=== PATIENT | male | born 1940 | race Caucasian/White ===

== ENCOUNTER 2017-10-24 11:01 | Outpatient (CLI) | payer MEDICARE ==
--- NOTE | 2017-10-24 12:45 | RAD ---
RADIOGRAPH CERVICAL SPINE 5 VIEWS: HISTORY: 77-year-old male with cervical radiculopathy and cervical myelopathy. Cervicalgia. Technique: AP and open mouth. Lateral views in neutral, flexion, and extension. COMPARISON: No prior plain radiographs or CT's of the cervical spine. There is an MRI of 06-24-08. FINDINGS: There are bilateral posterior element screws with vertical interlocking rods, at C3, C4, and C5, new since the 2007 MRI. There are also laminectomy defects throughout these same levels. There is severe osteopenia. There is moderate to severe disc space narrowing at C3-4, moderate disc space narrowing a t C4-5, and mild disc space narrowing at C5-6. There is endplate irregularity, moderate disc space na rrowing, and large anterior endplate osteophytes protruding into the prevertebral space at C6-7 and C 7-T1. No major subluxation. No prevertebral soft tissue swelling. The large osteophytes at C6-7 encro ach upon the hypopharynx, and could potentially result in dysphagia. No instability is demonstrated b etween flexion and extension. There is kyphosis of the upper thoracic spine. IMPRESSION: 1) Status post laminectomies and posterior element fusion hardware, at C3-4-5. 2) Cervical spondylosis, including severe degenerative disc disease at C6-7 and C7-T1. 3) Upper thoracic kyphosis. 4) Severe osteoporosis. 5) No instability. FANTASMA POS: PHILIP
== END 2017-10-24 11:02 | disposition home or self-care (01) ==
LOC: TBSIIMAG 11:01
PROVIDERS: ATTEND Neurological Surgery
DX: M47.12 Other spondylosis with myelopathy, cervical region (principal); M40.204 Unspecified kyphosis, thoracic region; M81.0 Age-related osteoporosis without current pathological fracture
CPT/HCPCS: 72050

== ENCOUNTER 2019-08-19 15:21 | Outpatient (CLI) | payer MEDICARE ==
--- NOTE | 2019-08-19 15:52 | RAD ---
XR Hand Lt 3 View STANDARD HISTORY: Injury, left hand pain FINDINGS: No fracture or dislocation is identified.
== END 2019-08-19 15:22 | disposition home or self-care (01) ==
LOC: BICRAD 15:21
PROVIDERS: ATTEND Physician Assistant Medical
DX: M79.642 Pain in left hand (principal)

== ENCOUNTER 2019-10-14 14:45 | Outpatient (CLI) | payer MEDICARE ==
--- NOTE | 2019-10-14 15:29 | RAD ---
EXAM: 3 views of the sacrum/coccyx HISTORY: Sacral/coccygeal pain COMPARISON: None FINDINGS: 3 views of the sacrum/coccyx shows no evidence of displaced sacral or coccygeal fracture. T he sacral alae are symmetric. The sacroiliac joints and pubic symphysis are unremarkable. IMPRESSION: No evidence of sacral or coccygeal fracture.
--- NOTE | 2019-10-15 07:37 | RAD ---
Lumbar spine 2 views HISTORY: Low back pain. FINDINGS: There are 5 lumbar type vertebrae. Pedicles are intact. Compression of the L2 superior endp late with loss of height by approximately 20%. Sclerotic appearance. There is reversal of the normal lordotic curvature on the lateral view. Prominent osteophytosis throu ghout the vertebral bodies. Less prominent osteophytosis of the facets. There is calcification throughout the arterial structures. On the frontal view, pubic symphysis is somewhat ill-defined. Most of the irregular soft tissue and g as density is likely related to the rectal content. IMPRESSION: Mild compression of the L2 superior endplate. Sclerosis suggests that this is a chronic p rocess, although the age is indeterminate. Degenerative changes throughout the lumbar spine. Poor osseous definition of the pubic symphysis on the frontal view. Clinical correlation regarding ot her signs and symptoms at the pubic symphysis is required. If symptoms warrant, CT pelvis should be considered. Atherosclerosis.
== END 2019-10-14 14:46 | disposition home or self-care (01) ==
LOC: BICRAD 14:45
PROVIDERS: ATTEND Family Medicine
DX: M54.5 Low back pain (principal); M47.816 Spondylosis without myelopathy or radiculopathy, lumbar region; I70.90 Unspecified atherosclerosis; M89.9 Disorder of bone, unspecified
CPT/HCPCS: 72100; 72220

== ENCOUNTER 2022-02-25 10:35 | Outpatient (CLI) | payer MEDICARE | END 2022-02-25 10:36 | disposition home or self-care (01) | LOC: BICRAD 10:35 | PROVIDERS: ATTEND Family Medicine | DX: M54.2 Cervicalgia (principal); M79.671 Pain in right foot; S92.511A Displaced fracture of proximal phalanx of right lesser toe(s), initial encounter for closed fracture; M19.071 Primary osteoarthritis, right ankle and foot; M47.812 Spondylosis without myelopathy or radiculopathy, cervical region; Z98.890 Other specified postprocedural states | CPT/HCPCS: 72040 ==